=== PATIENT | male | born 1960 ===

== ENCOUNTER 2016-11-15 14:28 | Emergency (ER) | payer OTHER ==
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
[2016-11-15] MEDS ORDERED: Tetanus/Diphtheria Toxoids 0.5 ml Syringe IM ONE ×2 (14:54→15:05)
[2016-11-15 15:48] VITALS: BP 158/81; PULSE 96; RESP 20; TEMP 98.1; O2SAT 100
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
== END 2016-11-15 15:56 | disposition home or self-care (01) ==
LOC: C.ER 14:28
DX: S80.211A Abrasion, right knee, initial encounter (principal); S30.810A Abrasion of lower back and pelvis, initial encounter; S39.012A Strain of muscle, fascia and tendon of lower back, initial encounter; S66.912A Strain of unspecified muscle, fascia and tendon at wrist and hand level, left hand, initial encounter; V29.88XA Motorcycle rider (driver) (passenger) injured in other specified transport accidents, initial encounter; Y92.410 Unspecified street and highway as the place of occurrence of the external cause
CPT/HCPCS: 73030; 73060; 73080; 73110; 90471; 90714; 96372; 99283; J1885

== ENCOUNTER 2017-06-26 23:34 | Emergency (ER) | payer OTHER ==
[2017-06-26 23:47] VITALS: BP 104/75; PULSE 85; RESP 16; TEMP 98.9; O2SAT 97
--- NOTE | 2017-06-27 00:30 | C.PDOC ---
History Of Present Illness 57 year old male presents to ED with complaints of fever, chills, generalized body aches, congestion, cough and diarrhea since yesterday. He reports cough has been for few days, non-productive and is now causing sore throat. He has been taking Advil and Dayquil without siginificant relief. Denies any chest pain , SOB, abdominal pain Time Seen by Provider: 06/27/17 00:00 Chief Complaint (Nursing): Cough, Cold, Congestion History Per: Patient History/Exam Limitations: no limitations Onset/Duration Of Symptoms: Days Current Symptoms Are (Timing): Still Present Location Of Pain: Throat, Diffuse Myalgias, Headache Associated Symptoms: Fever, Sore Throat, Cough Past Medical History Reviewed: Historical Data, Nursing Documentation, Vital Signs Vital Signs: Last Vital Signs Temp 98.9 F 06/26/17 23:42 Pulse 85 06/26/17 23:42 Resp 16 06/26/17 23:42 BP 104/75 06/26/17 23:42 Pulse Ox 97 06/27/17 00:30 - Medical History Other PMH: SLE Family History: States: Unknown Family Hx - Social History Hx Alcohol Use: Yes Hx Substance Use: No - Immunization History Hx Tetanus Toxoid Vaccination: No Hx Influenza Vaccination: No Hx Pneumococcal Vaccination: No Review Of Systems Constitutional: Positive for: Fever, Malaise Eyes: Negative for: Redness ENT: Positive for: Nose Congestion, Throat Pain. Negative for: Ear Pain Cardiovascular: Negative for: Chest Pain, Palpitations Respiratory: Positive for: Cough. Negative for: Sputum, Wheezing Gastrointestinal: Positive for: Diarrhea. Negative for: Nausea, Vomiting, Abdominal Pain Skin: Negative for: Rash Neurological: Positive for: Headache. Negative for: Weakness, Numbness, Dizziness Physical Exam - Physical Exam Appears: Non-toxic, No Acute Distress Skin: Warm, Dry, No Diaphoretic, No Rash Head: Atraumatic, Normacephalic Eye(s): bilateral: Normal Inspection, EOMI Ear(s): Bilateral: Normal (no erythema) Nose: Normal Oral Mucosa: Moist Throat: Erythema (mild), No Exudate, No Drooling, No Mass Neck: Normal ROM Chest: Symmetrical Cardiovascular: Rhythm Regular, No Murmur Respiratory: Normal Breath Sounds, No Accessory Muscle Use, No Rales, No Rhonchi , No Wheezing Back: Normal Inspection Extremity: Bilateral: Atraumatic, Normal ROM Neurological/Psych: Oriented x3, Normal Speech Gait: Steady ED Course And Treatment O2 Sat by Pulse Oximetry: 97 Medical Decision Making Medical Decision Making: Patient with multi-symptom complaint likely influenza. Will treat with Tamiflu. Patient remained afebrile alert and oriented with stable vital signs during ER evaluation. Patient in no acute distress. Patient feels comfortable going home and will be discharged. Patient given follow up instructions. Instructed to return to ER if symptoms worsen or new symptoms arise. Disposition Counseled Patient/Family Regarding: Diagnosis, Need For Followup, Rx Given - Disposition Referrals: Shaik Paris MD [Staff Provider] - Disposition: HOME/ ROUTINE Disposition Time: 00:37 Condition: STABLE Additional Instructions: You have Influenza Take Tamiflu twice daily for 5 days Take Tylenol or Motrin alternating every 4-6 hours for Fever 100.4F or higher. Rest and drink plenty of fluids. May use cool mist humidifier or vaporizer in room. Follow up with your primary medical doctor or clinic in 2-5 days for further evaluation. Return to the emergency department at any time if symptoms persist or worsen. Prescriptions: Albuterol HFA [Ventolin HFA 90 mcg/actuation (8 g)] 1 puff IH Q4 #1 puff Benzonatate [Tessalon Perles] 100 mg PO TID #30 sgl Oseltamivir [Tamiflu] 75 mg PO BID #9 cap Prednisone 50 mg PO DAILY #3 tablet Instructions: Influenza (ED) Forms: [employer] ([place]) - POA Present On Arrival: None - Clinical Impression Clinical Impression: Influenza-like illness, Upper respiratory infection
== END 2017-06-27 00:48 | disposition home or self-care (01) ==
LOC: C.ER 23:34
DX: J11.1 Influenza due to unidentified influenza virus with other respiratory manifestations (principal); F17.210 Nicotine dependence, cigarettes, uncomplicated